=== PATIENT | female | born 1995 | race Caucasian/White ===

== ENCOUNTER 2024-06-15 19:47 | Emergency (ER) | payer OTHER ==
[~2024-06-15] VITALS: Ht 175.3 cm; Wt 75.0 kg
[2024-06-15 21:14] VITALS: BP 123/65; PULSE 59; TEMP 97.8
== END 2024-06-15 21:14 | disposition home or self-care (01) ==
LOC: COL.ER 19:47
DX: T18.128A Food in esophagus causing other injury, initial encounter (principal); W44.F3XA Food entering into or through a natural orifice, initial encounter